=== PATIENT | female | born 1995 | race Caucasian/White ===

== ENCOUNTER 2024-04-15 08:25 | Emergency (ER) | payer BC, SELFPAY ==
[2024-04-15 09:06] VITALS: BP 107/73; PULSE 79; RESP 18; TEMP 36.8; O2SAT 98; BMI 31.5
--- NOTE | 2024-04-15 09:14 | ED.GENADULT ---
HPI - General Adult General Chief complaint: Skin/Abscess/Foreign Body Stated complaint: Hives since yesterday Time Seen by Provider: 04/15/24 09:14 History of Present Illness HPI narrative: Patient reports noticing pinpoint red rash all over body yesterday. She took Benadryl last night. Today this redness has dissipated but she reports feeling burning and tingling sensation all over body. 29-year-old woman presenting to the emergency department with concern of rash that flared more yesterday. Did take some diphenhydramine overnight. Over the preceding few days has been feeling alternating hot and cold, chilled but otherwise had not had any symptoms of illness. No rhinorrhea no cough. Abdominal pains. No dysuria. No frequency. She has a picture showing faintly to moderately erythematous reticular with some speckling rash over the thighs. Had been also present intensely over the abdomen at all is faded. She is immunized for typical childhood illnesses as far she knows. Arrives here with 2 young children but has not been exposed to illness otherwise. Does have exercise-induced asthma. Not having difficulty breathing or notice any wheeze. No throat tightness and no sore throat. No dysuria. No flank pain. She has had some low back discomfort though seeing a chiropractor. Related Data Home Medications ?Medication ?Instructions ?Recorded ?Confirmed No Known Home Medications 04/15/24 04/15/24 Allergies Allergy/AdvReac Type Severity Reaction Status Date / Time No Known Drug Allergies Allergy Verified 04/15/24 09:06 Review of Systems Status of ROS: Reports: 6 or more systems reviewed and unremarkable except as noted in History and below Exam Narrative: Exam Narrative: Very pleasant. NAD. Faintly erythematous is demonstrated in the left forearm. Mildly erythematous in some areas of the abdomen as well. Lungs are clear. No stridor. Lips are not swollen. Heart is regular rate and rhythm without murmur or gallop. Abdomen is soft nontender. No flank pain. Is well-perfused without edema. Neck is supple without lymphadenopathy. Area of pain in low back as palpated seems to be surrounding right greater than left SI joint. Const: Vital Signs, click to edit/add: Vital Signs - 24 hr 04/15/24 09:06 Temperature 98.2 F Pulse Rate [Pulse Oximeter] 79 Respiratory Rate 18 Blood Pressure [Ri ght Upper Arm] 107/73 Pulse Oximetry 98 Oxygen Delivery Me thod Room Air Documenting provider has reviewed patient's vital signs: yes Course Vital Signs Vital signs: Initial Vital Signs Temperature 98.2 F 04/15/24 09:06 Temperature Source Temporal Artery Scan 04/15/24 09:06 Pulse Rate 79 04/15/24 09:06 Respiratory Rate 18 04/15/24 09:06 Blood Pressure 107/73 04/15/24 09:06 Blood Pressure Mean 84 04/15/24 09:06 Pulse Oximetry 98 04/15/24 09:06 Oxygen Delivery Method Room Air 04/15/24 09:06 Vital Signs Temperature 98.2 F 04/15/24 09:06 Pulse Rate 79 04/15/24 09:06 Respiratory Rate 18 04/15/24 09:06 Blood Pressure 107/73 04/15/24 09:06 Pulse Oximetry 98 04/15/24 09:06 Oxygen Delivery Method Room Air 04/15/24 09:06 Temperature 98.2 F 04/15/24 09:06 Pulse Rate 79 04/15/24 09:06 Respiratory Rate 18 04/15/24 09:06 Blood Pressure 107/73 04/15/24 09:06 Pulse Oximetry 98 04/15/24 09:06 Oxygen Delivery Method Room Air 04/15/24 09:06 Medical Decision Making MDM Narrative Medical decision making narrative: She does also mention a CLA supplement that she began taking 5 days ago but since the rash has stopped it. I would favor nonspecific viral illness coming/going. At this point little value I think in doing typical swabs. Otherwise is well. Would also offer some exercises/treatment recommendations for what sounds like sacroiliac joint pain. Patient discharge plan for further discussion I think you can continue to take diphenhydramine for breakthrough rash or itch but otherwise would take a few days of prednisone as prescribed from [facility]. Might return to your supplement after this course and see if rash might return. Be seen otherwise for recurring rash after this course. Prednisone from [facility] Discharge Plan Discharge Clinical Impression: Rash, Sacroiliac joint pain Patient Disposition: Home, Self-Care Condition: Stable Instructions: Acute Rash (ED) Additional Instructions: I think you can continue to take diphenhydramine for breakthrough rash or itch but otherwise would take a few days of prednisone as prescribed from [facility]. Might return to your supplement after this course and see if rash might return. Be seen otherwise for recurring rash after this course. Prednisone from [facility] Prescriptions: No Action No Known Home Medications Stand Alone Forms: [email or web address] Info Instructions
== END 2024-04-15 09:46 | disposition home or self-care (01) ==
PROVIDERS: Emergency Provider Family Medicine
DX: R21 Rash and other nonspecific skin eruption (principal); M53.3 Sacrococcygeal disorders, not elsewhere classified
CPT/HCPCS: 99283

== ENCOUNTER 2024-09-27 07:53 | Outpatient (CLI) | payer BC, SELFPAY | END 2024-09-27 07:54 | disposition home or self-care (01) | LOC: NFLDREF 10-02 03:55 | PROVIDERS: PCP Family Medicine; Referring Provider Family Medicine; Visit Provider Family Medicine | DX: E66.9 Obesity, unspecified (principal); Z13.1 Encounter for screening for diabetes mellitus; Z13.29 Encounter for screening for other suspected endocrine disorder | CPT/HCPCS: 80061; 82947; 84443 ==

== ENCOUNTER 2024-12-12 08:53 | Emergency (ER) | payer BC, SELFPAY ==
--- OUTSIDE RECORDS SUMMARY | 2024-12-12 08:57 | XMS_ITS | Clinical Summary ---
Author Organization [facility] Address [address] [place] [id number] Care Team Providers Care Travel Trailer Components Assembler Name Role Phone Pcp, No Primary Care Provider Unavailabl e Allergies No known active allergies Medications albuterol HFA (PRO-AIR; VENTOLIN; PROVENTIL) 90 mcg/actuation inhalerIndicatio ns:Influenza A Inhale 2 Puffs by mouth 4 times daily if needed for Wheezing. 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 Gender Identity Not on file Sexual Orientation Not on file Obstetrics History Para Term AB IAB SAB Ectopic Multiple Livin g Live Births 1 Date Outcome GA Total Labor Labor/2nd/3rd Weight Sex Type Anes PTL Ilene A1 A5 Name Clin Last Filed Vital Signs Vital Sign Reading Time Taken Comments Blood Pressure 133/77 12/30/2021 1:37 PM [employer]GGING [employer]EM[employer] Pulse 103 12/30/2021 1:37 PM LOGGING CRE[employer]EM[employer] Temperature 37.2 C (98.9 F) 12/30/2021 1:37 PM LOGGING [employer]EMAN Respiratory Rate 24 12/30/2021 1:37 PM LOGGING CREW [employer]EMAN Oxygen Saturation 97% 12/30/2021 1:37 PM LOGGING [employer]EM[employer] Inhaled Oxygen Concentration - - Weight 76.2 kg (168 lb) 12/30/2021 1:37 PM LOGGING [employer]EM[employer] Height 160 cm (5' 3) 12/30/2021 1:37 PM LOGGING [employer]EM[employer] Body Mass Index 29.76 12/30/2021 1:37 PM LOGGING [employer]W FOREMAN Plan of Treatment Not on file Insurance [facility] Care Teams Travel Trailer Components Assembler Relationship Specialty Start Date End Date Pcp, No . PCP - General 04/23/20
--- OUTSIDE RECORDS SUMMARY | 2024-12-12 08:57 | XMS_ITS | Clinical Summary ---
Author Organization [facility] Address [address] [place] [id number] Care Team Providers Care Health And Safety Tech Name Role Phone No Ref-Primary, Physician Primary Care Provider Allergies No known active allergies Medications Hospital, Clinic, or Other Facility Administered Medication Ordered Dose Route Frequency Start Date End Date Status sodium chloride (PF) 0.9% PF flush 3 mLIndications:Lower abdominal pain 3 mL IV EVERY 1 MIN PRN 01/23/2023 Activ e Active Problems Problem Noted Date Diagnosed Date Normal delivery 05/10/2022 Resolved Problems Problem Noted Date Diagnosed Date Resolved Date Labor and delivery, indication for care 05/10/2022 05/10/2022 (normal spontaneous vaginal delivery) 10/25/2015 01/07/2018 care and examinat ion immediately after delivery 10/25/2015 01/07/2018 Indication for care in labor or delivery 10/24/2015 01/07/2018 Immunizations Immunization Administration Dates Next Due DTAP (<7y) 05/29/1999, 6,1994,1994,1994 HEPA 07/09/2007 HIB (PRP-T) 06/01/1995, 5,1994,1994 Hepatitis A (Vaqta/Havrix)(P eds 12m-18y) 07/09/2007 Hepatitis B, Peds (Engerix-B/Recombivax HB) 1994,1994,1994 MMR (MMRII) 05/29/1999,06/01/1995 Poliovirus, inactivated (IPV) 05/29/1999 ,06/26/1995,1994,1994 TDAP Vaccine (Boostrix) 07/05/2016 Typhoid Oral 07/09/2007 Varicella (Varivax) 05/11/2022(),05/11/2022(), Family History Relation Status Comments Father Alive Mother Alive Social History Tobacco Use Types Packs/Day Years Used Date Smoking Tobacco: Never Smokeless Tobacco: Never Alcohol Use Standard Drinks/Week Comments Not Currently 0 (1 standard drink = 0.6 oz pur e alcohol) occ PHQ-2 Answer Date Recorded PHQ-2 Score 0 03/08/2018 [place] Depression Scale Answer Date Recorded Last EPDS Total Score Not on file 05/11/2022 The thought of harming myself has occurred to me . Never 05/11/2022 Adolescent Education Answer Date Record ed Getting School Help Needed Not on file 11/24 Comments Unknown Sex and Gender Information Value Date Recorded Sex Assigned at Not on file Legal Sex Female 3:43 AM MINIATURE SET CONSTRUCTOR Gender Identity Not on file Sexual Orientation Not on file Last Filed Vital Signs Vital Sign Reading Time Taken Comments Blood Pressure 114/75 01/23/2023 2:26 PM MINIATURE SET CONSTRUCTOR Pulse 80 01/23/2023 2:26 PM MINIATURE SET CONSTRUCTOR Temperature 36.7 C (98 F) 01/23/2023 2:26 PM MINIATURE SET CONSTRUCTOR Respiratory Rate 16 05/11/2022 9:10 AM CDT Oxygen Saturation 99% 01/23/2023 2:26 PM MINIATURE SET CONSTRUCTOR Inhaled Oxygen Concentration - - Weight 74.4 kg (164 lb) 01/23/2023 2:26 PM MINIATURE SET CONSTRUCTOR Height 160 cm (5' 3) 05/10/2022 2:46 AM CDT Body Mass Index 29.05 05/10/2022 2:46 AM CDT Plan of Treatment Health Maintenance Due Date Last Done Comments ADVANCE CARE PLANNING 1994 ANNUAL REVIEW OF HM ORDERS 1994 YEARLY PREVENTIVE VISIT 1997 HEPATITIS C SCREENING 02/22/2012 PAP 2015 PHQ-2 (once per calendar year) 2024 03/08/2018, 05/21/2016 COVID-19 VACCINE ( season) 2024 INFLUENZA VACCINE (#1) 2024 DTAP/TDAP/TD VACCINE (7 - Td or Tdap) 07/05/2026 07/05/2016, 05/29/1999, 08/31/1995, Additional history exists ZOSTER VACCINE (1 of 2) 02/22/2044 HEPATITIS B VACCINE Completed 1994, 1994, 1994 HIV SCREENING Completed 10/01/2021, 03/29/2015 HPV VACCINE (No Doses Required) Completed MENINGITIS VACCINE Aged Out No longer eligible based on patient's age to complete this topic PNEUMOCOCCAL VACCINE: PEDIATRICS (0 to 5 YEARS) AND AT-RISK PATIENTS (6 to 49 YEARS) Aged Out No longer eligible based on patient's age to complete this topic Procedures Procedure Name Priority Date/Time Associated Diagnosis Comments HIV 1&2 ANTIBODY (EXTERNAL RESULT) Routine 10/01/2021 9:00 AM CDT from Last 3 Months or Most Recently Relevant to Health Maintenance Results * HIV-1 Antibody (External Result) (10/01/2021 9:00 AM CDT) HIV 1&2 Antibody (External) Negative Nonreactive [facility] 10/01/2021 9:00 AM CDT us Patient Reported LAB - HIM EXTERNAL RESULT Final Result [facility] from Last 3 Months or Most Recently Relevant to Health Maintenance Advance Directives For more information, please contact: [phone] * Full Code (Latest Code Status on File) Date Activated Date Inactivated Comments 05/10/2022 3:18 AM 05/11/2022 4:03 PM All basic and advanced life-sustaining interventions are performed as appropriate Question Answer Comments Code status determined by: Unable to dis cuss and no AD/POLST on file; continue PREVIOUSLY ORDERED code status Care Teams Health And Safety Tech Relationship Specialty Start Date End Date No Ref-Primary, Physician PCP - General 01/07/18
[2024-12-12 09:00] VITALS: BP 116/80; PULSE 101; RESP 16; TEMP 37; O2SAT 98; BMI 31.1
--- NOTE | 2024-12-12 09:20 | ED.SKABFB ---
HPI - Skin/Abscess/Foreign Bdy General Time Seen by Provider: 09:20 Date Seen: 12/12/24 Chief complaint: Skin/Abscess/Foreign Body Stated complaint: Nail through R foot Time Seen by Provider: 12/12/24 09:20 Source: patient and RN notes reviewed Mode of arrival: ambulatory Limitations: no limitations History of Present Illness HPI narrative: This 29-year-old female is ambulatory into the ED after concern of [place]. It went into her right heel. Nursing staff did look up her tetanus, her last Tdap was 06/25/2016. This was old decking off their house. She feels some stinging sensation but overall the pain is not that bad. She wonders if the screws in the nail could of pushed matter into her foot. We did discuss that that is exactly what can happen, small microscopic pieces of tissue or dirt could be pushed into the tissue. 1 of the concerns, could be that tetanus per hours can be initiated in to tissues. We did discuss that puncture wounds are difficult to clean, we do not open up puncture wounds and create a large wound. We will give her antibiotics to cover, she is not allergic to penicillin. She was wearing rubber soled shoes, she stepped on the nail, was able to just pull her foot back off. , the nail was intact visibly. It actually was a screw, not technically a nail. Related Data Home Medications ?Medication ?Instructions ?Recorded ?Confirmed phentermine 37.5 mg tablet 37.5 mg PO QAM 11/18/24 11/18/24 Previous Rx's ?Medication ?Instructions ?Recorded albuterol sulfate 90 mcg/actuation 2 puff inhalation Q4-6H PRN 07/19/24 aerosol inhaler shortness of breath or wheezing #8.5 grams amoxicillin 875 mg-potassium 1 tab PO BID #14 tabs 12/12/24 clavulanate 125 mg tablet Allergies Allergy/AdvReac Type Severity Reaction Status Date / Time No Known Drug Allergies Allergy Verified 11/18/24 08:42 Review of Systems Narrative: As per HPI. 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 3 kids Exercise 5 days a week weights and high-intensity interval training Nonsmoker 1 alcoholic drinks a week No drug use What is your current living situation?: I presently have a place to live Problems where you live: no known problems In the past 12 months, utilities in danger of being shut off: no In past 12 months, lack of transportation kept you from medical appts, meetings, work, or getting things needed for daily living: no In the past 12 mos, have been you worried that your food would run out before you had money to buy more?: never true In the past 12 mos, the food you bought just didn't last and you didn't have money to buy more?: never true Do you use any of these nicotine containing products: None How often do you have a drink containing alcohol: never AUDIT-C Alcohol total score: 0 Non-prescribed substance use: denies use How often does anyone, including family, friends and others, physically hurt you: never How often does anyone, including family, friends and others, insult or talk down to you: rarely How often does anyone, including family, friends and others, threaten you with harm: never How often does anyone, including family, friends and others, scream or curse at you: rarely Health Related Social Needs: Other personal risk factors, not elsewhere classified (Z91.89) Exam Const: Vital Signs, click to edit/add: Vital Signs - 24 hr 12/12/24 09:00 Temperature 98.6 F Pulse Rate [Pulse Oximeter] 101 H Respiratory Rate 16 Blood Pressure [Ri ght Upper Arm] 116/80 Pulse Oximetry 98 Oxygen Delivery Me thod Room Air Arabella is a 29-year-old female that is alert, interactive, no apparent distress. She has a punctate small bloody area on the sole of her heel, this is on the right foot. There is no significant swelling around this, no active bleeding. Is a small punctate lesion. No visible bruising at this time. She was able to walk, is ambulatory into the ED. Documenting provider has reviewed patient's vital signs: yes Course Course ED Course: Will have nursing staff clean area, irrigate as much as able to. Cover with a bandage after. Her tetanus will be updated. We discussed the importance of treating with Augmentin if he does appear to be infected. We discussed starting antibiotics immediately verses watching. I am certainly fine with her watching in starting antibiotics if there are signs and symptoms of infection as discussed. She really does need her tetanus updated, has been over 5 years and would consider this a higher risk wound. She does agree to have her tetanus updated. Vital Signs Vital signs: Initial Vital Signs Temperature 98.6 F 12/12/24 09:00 Temperature Source Temporal Artery Scan 12/12/24 09:00 Pulse Rate 101 H 12/12/24 09:00 Respiratory Rate 16 12/12/24 09:00 Blood Pressure 116/80 12/12/24 09:00 Blood Pressure Mean 92 12/12/24 09:00 Blood Pressure Position Sitting 12/12/24 09:00 Pulse Oximetry 98 12/12/24 09:00 Oxygen Delivery Method Room Air 12/12/24 09:00 Vital Signs Temperature 98.6 F 12/12/24 09:00 Pulse Rate 101 H 12/12/24 09:00 Respiratory Rate 16 12/12/24 09:00 Blood Pressure 116/80 12/12/24 09:00 Pulse Oximetry 98 12/12/24 09:00 Oxygen Delivery Method Room Air 12/12/24 09:00 Temperature 98.6 F 12/12/24 09:00 Pulse Rate 101 H 12/12/24 09:00 Respiratory Rate 16 12/12/24 09:00 Blood Pressure 116/80 12/12/24 09:00 Pulse Oximetry 98 12/12/24 09:00 Oxygen Delivery Method Room Air 12/12/24 09:00 Medications Administered Medications: Discontinued Medications Generic Name Dose Route Start Last Admin Trade Name Freq PRN Reason Stop Dose Admin Diphtheria/Tetanus/Acell Pertussis 0.5 ml 12/12/24 09:26 12/12/24 09:35 Tetanus/Diphth/Pertussis 0.5 Ml Syringe IM 12/12/24 09:27 0.5 ml .ONCE ONE Administration Discharge Plan Discharge Clinical Impression: Puncture wound of right heel Patient Disposition: Home, Self-Care Condition: Stable Instructions: Puncture Wound in the Foot (ED) Additional Instructions: May shower and bathe as usual. Can just use a bandage and bacitracin to cover the wound. If there is any concern for development of infection such as increasing swelling, redness, purulent discharge, development of fever with any of these symptoms, start the antibiotic immediately. Seek re-evaluation if you feel antibiotics are not helping with infection, have other concerns. Activity Level: Activity as Tolerated Prescriptions: New amoxicillin-pot clavulanate 875-125 mg tablet 1 tab PO BID Qty: 14 0RF No Action albuterol sulfate 90 mcg/actuation HFA aerosol inhaler 2 puff inhalation Q4-6H PRN (Reason: shortness of breath or wheezing) Qty: 8.5 1RF phentermine 37.5 mg tablet 37.5 mg PO QAM Follow Up/Referrals: Jean Vargas MD [Primary Care Provider, Family Practice] Stand Alone Forms: [email or web address] Info Instructions
[2024-12-12] MEDS: TETANUS/DIPHTH/PERTUSSIS 0.5 ML SYRINGE IM (09:35)
== END 2024-12-12 09:55 | disposition home or self-care (01) ==
LOC: ED 09:35
PROVIDERS: Emergency Provider Family Medicine; PCP Family Medicine
DX: M79.671 Pain in right foot (principal); W45.0XXA Nail entering through skin, initial encounter; Z23 Encounter for immunization
CPT/HCPCS: 90471; 90715; 99282